=== PATIENT | female | born 1970 ===

== ENCOUNTER 2018-03-11 11:05 | Outpatient (CLI) | payer OTHER ==
[~2018-03-11] VITALS: Ht 152.4 cm; Wt 59.9 kg
== END 2018-03-11 11:20 | disposition home or self-care (01) ==
LOC: OFIC 805 11:05
DX: H61.23 Impacted cerumen, bilateral (principal); H60.8X3 Other otitis externa, bilateral; J31.0 Chronic rhinitis

== ENCOUNTER 2018-10-21 08:25 | Outpatient (CLI) | payer OTHER ==
[~2018-10-21] VITALS: Ht 152.4 cm; Wt 61.2 kg
== END 2018-10-21 08:45 | disposition home or self-care (01) ==
LOC: OFIC 805 08:25
DX: J31.0 Chronic rhinitis (principal); H61.23 Impacted cerumen, bilateral; H69.83 Other specified disorders of Eustachian tube, bilateral

== ENCOUNTER 2019-06-26 11:06 | Outpatient (CLI) | payer OTHER ==
[~2019-06-26] VITALS: Ht 152.4 cm; Wt 59.0 kg
== END 2019-06-27 10:13 | disposition home or self-care (01) ==
LOC: OFIC 805 11:06
DX: H61.23 Impacted cerumen, bilateral (principal); H93.90 Unspecified disorder of ear, unspecified ear

== ENCOUNTER 2020-03-31 15:00 | Emergency (ER) | payer OTHER ==
[~2020-03-31] VITALS: Ht 154.9 cm; Wt 59.0 kg
[2020-03-31] MEDS ORDERED: NORVASC2.5 MG PO (15:18)
== END 2020-03-31 18:52 | disposition home or self-care (01) ==
LOC: ER 15:00
DX: S43.084A Other dislocation of right shoulder joint, initial encounter (principal); X50.3XXA Overexertion from repetitive movements, initial encounter; Y93.73 Activity, racquet and hand sports; Y92.832 Beach as the place of occurrence of the external cause; Y99.8 Other external cause status